=== PATIENT | male | born 1985 | race Caucasian/White ===

== ENCOUNTER 2016-04-01 18:26 | Emergency (ER) | payer OTHER ==
[~2016-04-01] VITALS: Ht 167.6 cm; Wt 94.8 kg
[~2016-04-01 18:26] MED LIST: ALBINS/ INH; ALBUAER19 INH; BND25 PO; CALCTAB65 PO; CHOL100010 PO; CLR10 PO; EPP3/2 IM; MULTTAB58 PO; OMEP-199 PO; PXL20 PO; WLL75 PO
[2016-04-01 18:52] VITALS: TEMP 37; Ht 167.6 cm; Wt 94.8 kg
[2016-04-01] MEDS ORDERED: PRT/20 PO (20:09)
[2016-04-01] MEDS ORDERED: CETI10TA84 PO (20:09)
[2016-04-01 20:35] LABS: BASO % 0.4 %; BASO ABS # 0.03 K/uL (0-0.2); COMPLETE YES; EOS % 5.1 %; HEMATOCRIT 45.1 % (42-52); IG% 0.1 %; LYMPH % 33.8 %; LYMPH ABS # 2.26 K/uL (1.2-3.4); MEAN CELL VOLUME 85.1 fL (80-100); MEAN CORPUSCULAR HGB CONC 35.3 g/dl (32-36); MEAN PLATELET VOLUME 9.8 fL (7.4-10.4); MONO % 5.7 %; NEUT % 54.9 %; PLATELET COUNT 237 K/uL (130-400); WHITE BLOOD COUNT 6.68 K/uL (4.8-10.8)
[2016-04-01 20:59] LABS: BUN/CREATININE RATIO 13.6 (10-20); CREATININE 1.1 mg/dl (0.60-1.40); POTASSIUM 3.5 mmol/L (3.5-5.1)
--- NOTE | 2016-04-01 21:09 | EMERGENCY ROOM VISIT NOTE ---
History First contact with patient: 19:30 Chief Complaint: RECTAL BLEEDING Stated Complaint: BLOOD CLOTS WHEN HAVING BOWEL MOVEMENT History of Present Illness The patient is a 31 year old male who presents to the Emergency Room via private vehicle with complaints of "blood clots would have a bowel movement". The patient states that he has had normal bowel movements until today around 2: 15 PM when at the end of his defecation/normal bowel movement he noticed that when he wiped there was blood on the toilet paper a little bit in the bowl. This was bright red blood. There was no melena. Patient states that after cleaning himself there was still a little bit of blood that he noticed in his underwear. He notes that the bowel movement was brown in nature and not black. He again denies any abdominal pain or pain with bowel movements. He notes he is only have one episode of this. He denies any constipation lately, history of anal fissure, hemorrhoids. His only abdominal surgery is cholecystectomy. He denies any symptoms at this time. Review of Systems A complete 10-point Review of Systems was discussed with the patient, with pertinent positives and negatives listed in the History of Present Illness. All remaining Review of Systems questions can be considered negative unless otherwise specified. Past Medical/Surgical History Medical Problems: (1) Asthma (2) GERD (gastroesophageal reflux disease) Family History Diabetes mellitus FH: gallbladder disease FH: heart disease Hypertension Social History Smoking Status: Never Smoker Alcohol Use: occasionally Marital Status: Housing Status: lives with family Occupation Status: employed Current/Historical Medications Scheduled Bupropion HCl (Bupropion HCl), 75 MG PO BID Cetirizine (Zyrtec), 10 MG PO DAILY Pantoprazole (Protonix), 20 MG PO DAILY Paroxetine (Paroxetine HCl), 20 MG PO DAILY Scheduled PRN Albuterol Inhaler (Ventolin Inhaler), 2 PUFFS INH QID PRN for Shortness of Breath Albuterol Sulf (Proventil 0.083% 2.5MG/3ML), 2.5 MG INH QID PRN for SOB/Wheezing Epinephrine (Epipen), 0.3 MG IM UD PRN for ALLERGIC REACTION Allergies Coded Allergies: NUTS (Unverified Allergy, Severe, SEVERELY ALLERGIC, 04/01/16) Nut Tree (Unverified Allergy, Severe, SEVERELY ALLERGIC, 04/01/16) Cephalexin (Verified Allergy, Unknown, VOMITING AND RESP, 04/01/16) Grass (Verified Allergy, Unknown, UNKNOWN, 04/01/16) Molds and Smuts (Verified Allergy, Unknown, `, 04/01/16) Physical Exam Vital Signs Date Time Temp Pulse Resp B/P Pulse Ox O2 Delivery O2 Flow Rate FiO2 04/01/16 21:15 61 18 124/89 98 Room Air 04/01/16 20:06 65 18 130/84 100 Room Air 04/01/16 18:52 37.0 69 18 134/85 100 Room Air Physical Exam VITAL SIGNS - Vital signs and nursing notes were reviewed. Patient is afebrile , normotensive, non-tachycardic and saturating well on room air at 100%. GENERAL -31-year-old male appearing his stated age who is in no acute distress. Communicates well with provider and answers questions appropriately. SKIN - Without rashes. No petechial rashes. No gingival bleeding. HEAD - NC/AT. EYES - PERRL with EOMI bilaterally. Sclera anicteric. Palpebral conjunctiva pink and moist with no injection noted. No subconjunctival hemorrhage. EARS - No deformities of external structures noted on gross examination bilaterally. No blood in the ear canals. NOSE - Midline and without cyanosis. No epistaxis or purulent drainage noted. Septum midline without deviation or septal hematoma noted. MOUTH/OROPHARYNX - Without perioral cyanosis. Buccal mucosa pink and moist and without leukoplakia. Tongue midline with equal elevation of palate bilaterally. No tonsillar hypertrophy, erythema, or exudates noted. Good dentition noted. No gingival bleeding. NECK - Neck with FROM. LUNGS - Chest wall symmetric without accessory muscle use, intercostals retractions, or central cyanosis. Normal vesicular breath sounds CTA B/L. No wheezes, rales, or rhonchi appreciated. CARDIAC - RRR with S1/S2. No murmur, rubs, or gallops appreciated. ABDOMEN - Abdominal contour without pulsations or visible masses. BS normoactive all four quadrants. No tenderness, palpable masses, hepatosplenomegaly, or ascites noted. No abdominal abnormalities noted. EXTREMITIES - No clubbing or peripheral cyanosis. No pretibial edema present. + 5/5 strength noted in UE/LE bilaterally. NEUROLOGIC - Sensory intact to light touch throughout. RECTAL: After obtaining consent, good sphincter tone, no external hemorrhoids or fissures noted. No active extravasation of blood. There is dried blood noted in the perineum region. No evidence of abscess or infection. Internal examination digitally reveals no prostate enlargement, tenderness, internal hemorrhoids. There was no gross blood noted. Medical Decision & Procedures Laboratory Results 04/01/16 20:27 Red Blood Count 5.30, Mean Corpuscular Volume 85.1, Mean Corpuscular Hemoglobin 30.0, Mean Corpuscular Hemoglobin Concent 35.3, Mean Platelet Volume 9.8, Neutrophils (%) (Auto) 54.9, Lymphocytes (%) (Auto) 33.8, Monocytes (%) (Auto) 5.7, Eosinophils (%) (Auto) 5.1, Basophils (%) (Auto) 0.4, Neutrophils # (Auto) 3.66, Lymphocytes # (Auto) 2.26, Monocytes # (Auto) 0.38, Eosinophils # (Auto) 0.34, Basophils # (Auto) 0.03 04/01/16 20:27 Test 04/01/16 20:27 White Blood Count 6.68 K/uL (4.8-10.8) Red Blood Count 5.30 M/uL (4.7-6.1) Hemoglobin 15.9 g/dL (14.0-18.0) Hematocrit 45.1 % (42-52) Mean Corpuscular Volume 85.1 fL (80-100) Mean Corpuscular Hemoglobin 30.0 pg (25-34) Mean Corpuscular Hemoglobin Concent 35.3 g/dl (32-36) Platelet Count 237 K/uL (130-400) Mean Platelet Volume 9.8 fL (7.4-10.4) Neutrophils (%) (Auto) 54.9 % Lymphocytes (%) (Auto) 33.8 % Monocytes (%) (Auto) 5.7 % Eosinophils (%) (Auto) 5.1 % Basophils (%) (Auto) 0.4 % Neutrophils # (Auto) 3.66 K/uL (1.4-6.5) Lymphocytes # (Auto) 2.26 K/uL (1.2-3.4) Monocytes # (Auto) 0.38 K/uL (0.11-0.59) Eosinophils # (Auto) 0.34 K/uL (0-0.5) Basophils # (Auto) 0.03 K/uL (0-0.2) RDW Standard Deviation 40.3 fL (36.4-46.3) RDW Coefficient of Variation 13.0 % (11.5-14.5) Immature Granulocyte % (Auto) 0.1 % Immature Granulocyte # (Auto) 0.01 K/uL (0.00-0.02) Anion Gap 13.0 mmol/L (3-11) Est Creatinine Clear Calc Drug Dose 106.8 ml/min Estimated GFR () 104.6 Estimated GFR (Non- 90.2 BUN/Creatinine Ratio 13.6 (10-20) Calcium Level 9.0 mg/dl (8.5-10.1) Medical Decision Patient was seen and evaluated as above. After obtaining a thorough history and physical examination the blood workup was initiated. Patient has had one episode of BRBPR medially following defecation. He has had normal bowel movements consistently with only one episode of blood. He denies any history of hemorrhoid or fissure. He denies any history of abdominal conditions. 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 It is possible the patient has an internal hemorrhoid. Patient has had no abdominal pain or rectal pain. His only symptom was one episode of rectal bleeding. I do believe it is reasonable at this time to assess basic labs, CBC reveals no leukocytosis or anemia. CMP reveals slightly high anion gap but stable electrolytes. I do not suspect any hemorrhage at this time. I do not suspect any infectious process. Case was discussed with my attending, and it was decided the patient could follow-up in the outpatient setting by calling the phone number provided for a spa consultant. Patient seemed happy with plan of care. He was educated upon worrisome symptoms which to return, had questions answered prior to discharge and was discharged home in good condition. In the evaluation and treatment of this patient the following differential diagnoses were entertained: Anal fissure, external hemorrhoid, internal hemorrhoid, diverticulitis, Crohn's, ulcerative colitis, mesenteric ischemia, among others. In the absence of abdominal pain, or rectal pain I suspect the patient does not have any emergent causes therefore believe it is appropriate to follow up in the outpatient setting with gastroenterology. He certainly was educated to return with any worsening, persistent or new/concerning symptoms. Impression Primary Impression: Rectal bleeding Departure Information Dispostion Home / Self-Care Condition GOOD Referrals Mikayla Brody DO (PCP) Tonya Burgess M.D. Patient Instructions My [facility] Additional Instructions You were seen in the emergency Department for rectal bleeding. Your blood work did not reveal any low blood levels or signs of infection. Your anion gap was found to be slightly high here today at 13, but the other levels that comprise this value were normal. Please call the number for the GI specialists listed above. (Dr. Burgess). Please call first thing tomorrow morning and states that you were seen in the emergency Department. Please return to the emergency department with any additional bleeding, dizziness, nausea, vomiting, abdominal pain or any new/concerning symptoms.
[2016-04-01 21:15] VITALS: BP 124/89; PULSE 61; O2SAT 98
[2016-05-14] MEDS ORDERED: PENI500T2 PO (14:19)
[2016-05-14] MEDS ORDERED: LAMO100T PO (14:19)
[2016-05-14] MEDS ORDERED: PYRI100T4 PO (14:19)
== END 2016-04-01 21:16 | disposition home or self-care (01) ==
LOC: C.EDB 18:30 → C.EDA 21:16
DX: K62.5 Hemorrhage of anus and rectum (principal); J45.909 Unspecified asthma, uncomplicated; K21.9 Gastro-esophageal reflux disease without esophagitis; Z79.899 Other long term (current) drug therapy

== ENCOUNTER → 2016-04-24 | Outpatient (CLI) | payer OTHER ==
[~2016-04-24] MED LIST changes: +AMOX875T PO; +AZITTAB PO; -BND25 PO; -CALCTAB65 PO; +CETI10TA84 PO; -CHOL100010 PO; -CLR10 PO; +CYAN100T PO; +FEXO1TAB49 PO; +LAMO100T PO; +MULT-506 PO; -MULTTAB58 PO; -OMEP-199 PO; +PENI500T2 PO; +PRT/20 PO; +PYRI100T4 PO; +SULI200T4 PO; +VNTHFA/IN INH
--- NOTE | 2016-04-24 16:26 | DIAGNOSTIC IMAGING REPORT ---
THORACIC SPINE 3 VIEWS CLINICAL HISTORY: Thoracic back pain. FINDINGS: AP, lateral, and swimmer's views of the thoracic spine are correlated with lateral chest x-ray dated 02/09/2015. The skeletal structures are well mineralized. There is no radiographic evidence of fracture or malalignment. Vertebral body height and alignment are maintained. The transverse processes and pedicles are grossly intact on the frontal view. Intervertebral disc spaces are maintained. Cholecystectomy clips are noted in the right upper quadrant. The imaged lung parenchyma appears clear. IMPRESSION: No acute bony abnormality is identified in the thoracic spine. Electronically signed by: Doc Morales M.D. 04/24/2016 4:25 PM Dictated Date/Time: 04/24/2016 4:24 PM
== END | disposition home or self-care (01) ==
LOC: C.RAD 15:52
PROVIDERS: ATTEND Family Medicine
DX: M54.9 Dorsalgia, unspecified (principal)

== ENCOUNTER 2016-05-06 09:49 | Emergency (ER) | payer OTHER ==
[~2016-05-06] VITALS: Ht 167.6 cm; Wt 99.0 kg
[~2016-05-06 09:49] MED LIST changes: -AMOX875T PO; -AZITTAB PO; -CYAN100T PO; -FEXO1TAB49 PO; -LAMO100T PO; -MULT-506 PO; -PENI500T2 PO; -PYRI100T4 PO; -SULI200T4 PO; -VNTHFA/IN INH
[2016-05-06 10:03] VITALS: TEMP 36.7; Ht 167.6 cm; Wt 99.0 kg
[2016-05-06] MEDS ORDERED: MULT-506 PO (10:31)
[2016-05-06] MEDS ORDERED: VNTHFA/IN INH (10:31)
[2016-05-06] MEDS ORDERED: CYAN100T PO (10:31)
[2016-05-06] MEDS ORDERED: PENICILLIN V POTASSIUM 250 MG TAB PO ONE (11:15)
--- NOTE | 2016-05-06 11:15 | EMERGENCY ROOM VISIT NOTE ---
History Report prepared by Rita: Jones Young Under the Supervision of: Dr. Cceilio Umana M.D. First contact with patient: 11:07 Chief Complaint: RESPIRATORY PROBLEMS Stated Complaint: EAR PAIN, CHEST DISCOMFORT History of Present Illness The patient is a 31 year old male who presents to the Emergency Room with complaints of persistent sore throat that started yesterday. The patient also complains of pain in his right ear and feeling like his right eye was swelling. He denies shortness of breath, but does note some discomfort with deep breaths. He notes one close contact illness with his who was recently evaluated in the hospital for strep throat and pneumonia. Source of History: patient Onset: yesterday Position: throat Timing: other (persistent) Associated Symptoms: No SOB Note: Other associated symptoms: right ear pain, right eye swelling Review of Systems All systems have been listed, reviewed, and are negative other than those previously mentioned. Please see Additional Medical History Sheet. Past Medical & Surgical Medical Problems: (1) Asthma (2) GERD (gastroesophageal reflux disease) Family History Diabetes mellitus FH: gallbladder disease FH: heart disease Hypertension Social History Smoking Status: Never Smoker Alcohol Use: occasionally Marital Status: Housing Status: lives with family Occupation Status: employed Current/Historical Medications Scheduled Bupropion HCl (Bupropion HCl), 75 MG PO BID Cetirizine (Zyrtec), 10 MG PO DAILY Cyanocobalamin (Vitamin B-12), 100 MCG PO DAILY Multivitamin (Multivitamin), 1 TAB PO DAILY Pantoprazole (Protonix), 20 MG PO DAILY Paroxetine (Paroxetine HCl), 20 MG PO DAILY Penicillin V Potassium (Veetids), 500 MG PO TID Scheduled PRN Albuterol Hfa (Ventolin Hfa), 2 PUFFS INH QID PRN for Shortness of Breath Albuterol Sulf (Proventil 0.083% 2.5MG/3ML), 2.5 MG INH QID PRN for SOB/Wheezing Epinephrine (Epipen), 0.3 MG IM UD PRN for ALLERGIC REACTION Allergies Coded Allergies: NUTS (Unverified Allergy, Severe, SEVERELY ALLERGIC, 05/06/16) Nut Tree (Unverified Allergy, Severe, SEVERELY ALLERGIC, 05/06/16) Cephalexin (Verified Allergy, Unknown, VOMITING AND RESP, 05/06/16) Grass (Verified Allergy, Unknown, UNKNOWN, 3/27/17) Molds and Smuts (Verified Allergy, Unknown, `, 05/06/16) Physical Exam Vital Signs Date Time Temp Pulse Resp B/P Pulse Ox O2 Delivery O2 Flow Rate FiO2 05/06/16 12:48 80 20 127/70 100 05/06/16 10:03 36.7 76 20 133/87 99 Room Air Physical Exam GENERAL: Patient awake, alert, oriented x 3. Patient follows commands. Patient does not appear toxic. Patient is adequately hydrated and well- nourished. SKIN: No erythema, pallor, cyanosis or rash HEENT: Normal head, pupils equal, reactive to light and accommodation. Ears normal. Throat tonsils have been extracted. Some erythema, no pus noted. Neck : Without cervical adenopathy, no neck vein distention. LUNGS: Clear to auscultation. No wheezes, no rales, no rhonchi. HEART: No murmurs. No gallops. No rubs EXTREMITIES: No signs of or infection. NEUROLOGIC: Cranial nerves II-XII within normal limits. No gross motor sensory function deficits. Medical Decision & Procedures Medications Administered Medications (Trade) Dose Ordered Sig/Adry Route Start Time Stop Time Status Last Admin Dose Admin Penicillin V Potassium (Veetids Tab) 500 mg ONE ONCE PO 05/06/16 11:15 05/06/16 11:18 DC 05/06/16 11:35 500 MG ED Course 1108: Past medical records reviewed. The patient was evaluated in room B9. A complete history and physical examination was performed. 1115: Ordered Veetids Tab 500 mg PO. 1131: Upon reevaluation, the patient was resting comfortably. I discussed today' s findings with him. He verbalized agreement of the treatment plan. The patient was discharged home. Medical Decision Differential diagnoses include acute pharyngitis: viral versus bacterial, bronchitis, pneumonia, or asthma. Patient is here with a sore throat. His was recently diagnosed with culture proven strep. Exam does not reveal any pus or significant lymphadenopathy. His tonsils were removed in the past. In light of the patient 's history I believe he should be treated without further testing. The patient was started on penicillin here and given a prescription for the same. He is to take Tylenol for aches pains or fever and gargle with hot salt water. Impression Primary Impression: Acute streptococcal pharyngitis Scribe Attestation The scribe's documentation has been prepared under my direction and personally reviewed by me in its entirety. I confirm that the note above accurately reflects all work, treatment, procedures, and medical decision making performed by me. Departure Information Dispostion Home / Self-Care Prescriptions Penicillin V Potassium (VEETIDS) 500 Mg Tab 500 MG PO TID, #29 TAB Prov: Cecilio Umana M.D. 05/06/16 Referrals Mikayla Brody DO (PCP) Forms HOME CARE DOCUMENTATION FORM, IMPORTANT VISIT INFORMATION, WORK / SCHOOL INSTRUCTIONS Patient Instructions My [facility] Additional Instructions Pen VK 3 times per day until prescription has been completed.
[2016-05-06] MEDS ORDERED: PENI500T2 PO (11:18)
[2016-05-06 12:48] VITALS: BP 127/70; PULSE 80; O2SAT 100
[2016-05-14] MEDS ORDERED: LAMO100T PO (14:19)
[2016-05-14] MEDS ORDERED: PYRI100T4 PO (14:19)
[2016-05-14] MEDS ORDERED: PENI500T2 PO (14:19)
== END 2016-05-06 13:03 | disposition home or self-care (01) ==
LOC: C.EDB 09:52
DX: J02.0 Streptococcal pharyngitis (principal); J45.909 Unspecified asthma, uncomplicated; K21.9 Gastro-esophageal reflux disease without esophagitis; Z79.899 Other long term (current) drug therapy; Z91.018 Allergy to other foods; Z88.8 Allergy status to other drugs, medicaments and biological substances; Z83.3 Family history of diabetes mellitus; Z83.79 Family history of other diseases of the digestive system; Z82.49 Family history of ischemic heart disease and other diseases of the circulatory system

== ENCOUNTER → 2016-06-27 | Day surgery (SDC) | payer OTHER ==
[2016-05-14 14:20] VITALS: Ht 170.2 cm; Wt 93.2 kg
[~2016-06-27] VITALS: Ht 170.2 cm; Wt 93.2 kg
[~2016-06-27] MED LIST changes: -ALBUAER19 INH; +AMOX875T PO; +AZITTAB PO; +CYAN100T PO; +FEXO1TAB49 PO; +LAMO100T PO; +LIDOCAINE HCL 2% 2 ML VIAL (20MG/ML) ONE; +MIDAZOLAM HCL 1 MG/ML 2ML VIAL ONE; +ONDANSETRON INJ 2 MG/ML 2 ML VIAL ONE; +PENI500T2 PO; +PROPOFOL IV EMULSION 10 MG/ML 20 ML VIAL IV ONE; +PYRI100T4 PO; +SODIUM CHLORIDE 0.9% 500ML 500 ML IV ONE; +SULI200T4 PO; +VNTHFA/IN INH
--- NOTE | 2016-06-27 15:52 | Endo History and Physical ---
History & Physical Date of Service: June 27, 2016. Chief Complaint: Rectal Bleeding Referring Physician: Mikayla Brody History of Present Illness 31 yo CM who presents for colonoscopy secondary to rectal bleeding. Past Surgical History Hx Cardiac Surgery: No Hx Internal Defibrillator: No Hx Pacemaker: No Hx Abdominal Surgery: Yes (VITA 2011) Hx of Implantable Prosthesis: No Hx Post-Op Nausea and Vomiting: Yes (PONV R/T HYPOGLYCEMIC SENSITIVITY) Hx Cancer Surgery: No Hx Thoracic Surgery: No Hx Orthopedic: No Hx Urinary Tract Surgery: No Family History None Social History Smoking Status: Never Smoker Hx Substance Use: No Hx Alcohol Use: No Allergies Coded Allergies: NUTS (Unverified Allergy, Severe, ANAPHYLAXIS, 05/14/16) Nut Tree (Unverified Allergy, Severe, ANAPHYLAXIS, 05/14/16) Cephalexin (Verified Allergy, Unknown, VOMITING AND RESP, 05/14/16) Grass (Verified Allergy, Unknown, SINSUS DRAINAGE AND SNEEZING, 05/14/16) Molds and Smuts (Verified Allergy, Unknown, SINUS DRAINAGE AND SNEEZING, ) Current Medications Reported Home Medications Medications Dose Route/Sig Max Daily Dose Days Date Category Dose Instructions Vitamin B6 (Pyridoxine HCl) 100 Mg Tab 100 Mg PO QAM 05/14/16 Reported Veetids (Penicillin V Potassium) 500 Mg Tab 500 Mg PO TID 05/14/16 Reported WILL COMPLETE 05-18-16 Lamictal (Lamotrigine) 100 Mg Tab 0.5 Tab PO BID 05/14/16 Reported Vitamin B-12 (Cyanocobalamin) 100 Mcg Tab 100 Mcg PO QAM 05/06/16 Reported Ventolin Hfa (Albuterol) 200 Puffs/75878 Mcg Aers 2 Puffs INH QID PRN 05/06/16 Reported Protonix (Pantoprazole Sodium) 20 Mg Tab 20 Mg PO QAM 04/01/16 Reported Zyrtec (Cetirizine HCl) 10 Mg Tab 10 Mg PO QAM 04/01/16 Reported Bupropion HCl 75 Mg Tab 75 Mg PO BID 07/01/15 Reported Epipen (Epinephrine) 0.3 Mg/0.3 Ml Inj 0.3 Mg IM UD PRN 10/30/14 Reported Paroxetine HCl (Paroxetine) 20 Mg Tab 20 Mg PO QPM 10/30/14 Reported Proventil 0.083% 2.5MG/3ML (Albuterol Sulf) 2.5 Mg/3 Ml Nebu 2.5 Mg INH QID PRN 09/22/11 Reported Vital Signs Weight (Kilograms): 93.18 Height (Feet): 5 Height (Inches): 7 Date Time Temp Pulse Resp B/P Pulse Ox O2 Delivery O2 Flow Rate FiO2 06/27/16 14:32 36.7 72 16 134/76 97 Room Air Physical Exam General Appearance: WD/WN, no apparent distress Respiratory/Chest: Auscultation: breath sounds normal Cardiovascular: Heart Auscultation: RRR Abdomen: Bowel Sounds: normal Inspection & Palpation: soft, non-distended, no tenderness, guarding & rebound Assessment and Plan Assessment: 31 yo CM who presents for colonoscopy secondary to rectal bleeding. Plan: Proceed with colonoscopy.
--- NOTE | 2016-06-27 16:21 | Discharge Instructions ---
Endoscopy Patient Instructions Date / Procedure(s) Performed June 27, 2016. Colonoscopy Allergy Information Coded Allergies: NUTS (Unverified Allergy, Severe, ANAPHYLAXIS, 05/14/16) Nut Tree (Unverified Allergy, Severe, ANAPHYLAXIS, 05/14/16) Cephalexin (Verified Allergy, Unknown, VOMITING AND RESP, 05/14/16) Grass (Verified Allergy, Unknown, SINSUS DRAINAGE AND SNEEZING, 05/14/16) Molds and Smuts (Verified Allergy, Unknown, SINUS DRAINAGE AND SNEEZING, ) Discharge Date / Findings June 27, 2016. Internal hemorrhoids Medication Instructions OK to resume all medications today as prescribed Reported Home Medications Medications Dose Route/Sig Max Daily Dose Days Date Category Dose Instructions Vitamin B6 (Pyridoxine HCl) 100 Mg Tab 100 Mg PO QAM 05/14/16 Reported Veetids (Penicillin V Potassium) 500 Mg Tab 500 Mg PO TID 05/14/16 Reported WILL COMPLETE 05-18-16 Lamictal (Lamotrigine) 100 Mg Tab 0.5 Tab PO BID 05/14/16 Reported Vitamin B-12 (Cyanocobalamin) 100 Mcg Tab 100 Mcg PO QAM 05/06/16 Reported Ventolin Hfa (Albuterol) 200 Puffs/67849 Mcg Aers 2 Puffs INH QID PRN 05/06/16 Reported Protonix (Pantoprazole Sodium) 20 Mg Tab 20 Mg PO QAM 04/01/16 Reported Zyrtec (Cetirizine HCl) 10 Mg Tab 10 Mg PO QAM 04/01/16 Reported Bupropion HCl 75 Mg Tab 75 Mg PO BID 07/01/15 Reported Epipen (Epinephrine) 0.3 Mg/0.3 Ml Inj 0.3 Mg IM UD PRN 10/30/14 Reported Paroxetine HCl (Paroxetine) 20 Mg Tab 20 Mg PO QPM 10/30/14 Reported Proventil 0.083% 2.5MG/3ML (Albuterol Sulf) 2.5 Mg/3 Ml Nebu 2.5 Mg INH QID PRN 09/22/11 Reported Provider Instructions Activity Restrictions - No exercising or heavy lifting for 24 hours. - Do not drink alcohol the day of the procedure. - Do not drive a car or operate machinery until the day after the procedure. - Do not make any important decisions or sign important papers in 24 hours after the procedure. Following Day: - Return to full activity which may include returning to work/school. Diet Start your diet with liquids and light foods (jello, soup, juice, toast). Then eat your usual diet if not nauseated. Treatment For Common After Affects For mild abdominal pain, bloating, or excessive gas: - Rest - Eat lightly - Lie on right side Follow-Up Information Follow-up with Mikayla Brody as scheduled Anesthesia Information What You Should Know You have had a procedure that required some medicine to reduce anxiety and discomfort. This treatment is called moderate sedation. After receiving the treatment, you may be sleepy, but you will be able to breathe on your own. The effects of the treatment may last for several hours. Follow these instructions along with Activity/Diet recommendations noted above: * Do NOT do anything where dizziness or clumsiness would be dangerous. * Rest quietly at home today, then you can be up and about tomorrow. * Have a responsible person stay with you the rest of today. * You may have had an I.V. today. If so, you may take the dressing off later today. Recommendations Call your doctor if: * Trouble breathing * Continuous vomiting for more than 24 hours * Temperature above 101 degrees * Severe abdominal pain or bloating * Pain not relieved by pain medicine ordered * There is increased drainage or redness from any incision * A large amount of rectal bleeding greater than 2-3 tablespoons. (If you had a polyp/s removed or have hemorrhoids, a small amount of blood - from the rectum is to be expected.) * You have any unanswered questions or concerns. IN THE EVENT OF A SERIOUS EMERGENCY, GO TO THE NEAREST EMERGENCY ROOM Your discharge instructions were prepared by provider Abram Luna. Patient Instructions Signature Page Beto Martinez Patient (or Guardian) Signature/Date: I have read and understand the instructions given to me by my caregivers. Caregiver/RN/Doctor Signature/Date: The above-named patient and/or guardian has received patient instructions on this date. + Original Patient Signature Page (only) stays with chart. Please make copy for patient.
--- NOTE | 2016-06-27 16:46 | GI REPORT ---
Procedure Date: 06/27/2016 3:41 PM Procedure: Colonoscopy Indications: Rectal bleeding Medicines: Monitored Anesthesia Care Complications: No immediate complications. Estimated Blood Loss: Estimated blood loss: none. Procedure: Pre-Anesthesia Assessment: - Prior to the procedure, a History and Physical was performed, and patient medications and allergies were reviewed. The patient's tolerance of previous anesthesia was also reviewed. The risks and benefits of the procedure and the sedation options and risks were discussed with the patient. All questions were answered, and informed consent was obtained. Prior Anticoagulants: The patient has taken no previous anticoagulant or antiplatelet agents. ASA Grade Assessment: II - A patient with mild systemic disease. After reviewing the risks and benefits, the patient was deemed in satisfactory condition to undergo the procedure. After I obtained informed consent, the scope was passed under direct vision. Throughout the procedure, the patient's blood pressure, pulse, and oxygen saturations were monitored continuously. The scope was introduced through the anus and advanced to the terminal ileum. The colonoscopy was performed without difficulty. The patient tolerated the procedure well. The quality of the bowel preparation was good. The terminal ileum, ileocecal valve, appendiceal orifice, and rectum were photographed. Findings: Non-bleeding internal hemorrhoids were found during retroflexion. The hemorrhoids were small. Impression: - Non-bleeding internal hemorrhoids. - No specimens collected. Recommendation: - Resume previous diet. - Continue present medications. - Repeat colonoscopy at age 52 for surveillance. - Return to primary care physician as previously scheduled. Abram Luna DO 06/27/2016 4:45:38 PM This report has been signed electronically. Note Initiated On: 06/27/2016 3:41 PM I attest to the content of the Intraoperative Record and orders documented therein, exceptions below
--- NOTE | 2016-06-27 16:50 | Anesthesiology Progress Note ---
Anesthesia Post Op Note Date & Time June 27, 2016 at 16:49 Vital Signs Pain Intensity: 0 Vital Signs Past 12 Hours Date Time Temp Pulse Resp B/P Pulse Ox O2 Delivery O2 Flow Rate FiO2 06/27/16 16:37 79 18 118/77 98 Room Air 06/27/16 16:22 79 18 125/79 97 Room Air 06/27/16 14:32 36.7 72 16 134/76 97 Room Air Notes Mental Status: alert / awake / arousable, participated in evaluation Pt Amnestic to Procedure: Yes Nausea / Vomiting: adequately controlled Pain: adequately controlled Airway Patency, RR, SpO2: stable & adequate BP & HR: stable & adequate Hydration State: stable & adequate Anesthetic Complications: no major complications apparent Pt doing well. Glucose 120.
[2016-06-27 17:02] VITALS: BP 138/88; PULSE 73; TEMP 36.7; O2SAT 99
== END | disposition home or self-care (01) ==
LOC: C.GI 13:58
PROVIDERS: ATTEND Internal Medicine
DX: K64.8 Other hemorrhoids (principal); K62.5 Hemorrhage of anus and rectum

== ENCOUNTER 2016-09-15 19:05 | Emergency (ER) | payer OTHER ==
[~2016-09-15] VITALS: Ht 167.6 cm; Wt 97.2 kg
[~2016-09-15 19:05] MED LIST changes: -AMOX875T PO; -AZITTAB PO; -FEXO1TAB49 PO; -LIDOCAINE HCL 2% 2 ML VIAL (20MG/ML) ONE; -MIDAZOLAM HCL 1 MG/ML 2ML VIAL ONE; -ONDANSETRON INJ 2 MG/ML 2 ML VIAL ONE; -PROPOFOL IV EMULSION 10 MG/ML 20 ML VIAL IV ONE; -SODIUM CHLORIDE 0.9% 500ML 500 ML IV ONE; -SULI200T4 PO
[2016-09-15 19:09] VITALS: BP 137/88; PULSE 64; TEMP 36.9; O2SAT 98; Ht 167.6 cm; Wt 97.2 kg
[2016-09-15] MEDS ORDERED: AMOXICIL/CLAVU 875MG HOME PACK PO ONE (19:30)
[2016-09-15] MEDS ORDERED: AMOX875T PO (19:33)
[2016-09-15] MEDS ORDERED: SULI200T4 PO (19:40)
[2016-09-15] MEDS ORDERED: AZITTAB PO (19:40)
[2016-09-15] MEDS ORDERED: FEXO1TAB49 PO (19:40)
--- NOTE | 2016-09-15 20:34 | EMERGENCY ROOM VISIT NOTE ---
History First contact with patient: 19:17 Chief Complaint: EAR PAIN Stated Complaint: EAR PAIN, RT History of Present Illness The patient is a 31 year old male who presents to the Emergency Room with complaints of right ear pain and slight dizziness. The patient reports that he developed ear pain 1 week ago. When he lost balance at work last Friday, he was seen at the [facility] office in [place], and provided a prescription for a Z-Shawn. The patient reports no improvement of his symptoms over the past 48 hours. He denies any fevers or chills or current dizziness. He has also had no sinus congestion, runny nose, sore throat, postnasal drip or cough. He denies any prior history of vertigo. He has had a history of ear infections as a child, but never required any ear tubes. He rates his discomfort a 5 out of 10. Review of Systems 10 system review was performed and was negative except for pertinent positives and negatives as indicated in history of present illness Past Medical/Surgical History Medical Problems: (1) Asthma (2) GERD (gastroesophageal reflux disease) Family History Diabetes mellitus FH: gallbladder disease FH: heart disease Hypertension Social History Smoking Status: Never Smoker Alcohol Use: occasionally Marital Status: Housing Status: lives with family Occupation Status: employed Current/Historical Medications Scheduled Amoxicillin & Pot Clavulanate (Augmentin 875-125 mg), 1 TAB PO BID Azithromycin (Zithromax Z-Shawn), 1 PKT PO UD Bupropion HCl (Bupropion HCl), 75 MG PO BID Cyanocobalamin (Vitamin B-12), 100 MCG PO QAM Fexofenadine Hcl (Aleja Allergy), 1 TAB PO DAILY Lamotrigine (Lamictal), 0.5 TAB PO BID Pantoprazole (Protonix), 20 MG PO QAM Paroxetine (Paroxetine HCl), 20 MG PO QPM Pyridoxine (Vitamin B6), 100 MG PO QAM Sulindac (Clinoril), 200 MG PO BID Scheduled PRN Albuterol Hfa (Ventolin Hfa), 2 PUFFS INH QID PRN for Shortness of Breath Albuterol Sulf (Proventil 0.083% 2.5MG/3ML), 2.5 MG INH QID PRN for SOB/Wheezing Epinephrine (Epipen), 0.3 MG IM UD PRN for ALLERGIC REACTION Physical Exam Vital Signs Date Time Temp Pulse Resp B/P (MAP) Pulse Ox O2 Delivery O2 Flow Rate FiO2 09/15/16 19:09 36.9 64 16 137/88 98 Room Air Pain Rating (0-10): 3.0 Physical Exam CONSTITUTIONAL: Healthy and well nourished. Alert and oriented X 3 with positive affect. Patient does not appear in any acute distress. HEENT: Normocephalic, atraumatic. Pupils equal, round and reactive. No rhinorrhea noted. Examination of the left ear shows mild TM bulging without air -fluid level, serous or purulent effusion. Bony landmarks and light reflex are present. Examination of the right ear shows TM erythema without perforation or drainage. Bony landmarks are barely visible, and light reflex is absent. OROPHARYNX: No significant posterior pharyngeal erythema, postnasal drip or tonsillar hypertrophy. NECK: Full active range of motion without discomfort. MUSCULOSKELETAL: Full range of motion of all joints without discomfort. INTEGUMENTARY: No rash or other significant dermatologic conditions noted. NEUROLOGIC: Facial sensations are intact. Medical Decision & Procedures Medications Administered Medications (Trade) Dose Ordered Sig/Adry Route Start Time Stop Time Status Last Admin Dose Admin Amoxicillin/ Clavulanate Potassium (Augmentin 875MG Home Pack) 1 homepack UD ONCE PO 09/15/16 19:30 09/15/16 19:31 DC 09/15/16 19:39 1 HOMEPACK ED Course Patient history and physical exam were performed. Nurse's notes were reviewed. Vital signs were reviewed and normal. Clinical exam is consistent with otitis media. I did elect to switch the patient to Augmentin antibiotics. He was also encouraged to take an antihistamine for additional relief. Ibuprofen and Tylenol in alternating fashion if needed for additional pain relief. I did suggest that the patient follow up with his PCP for recheck in 3-5 days. The reports that she has to come to [facility] for a doctor's appointment next Friday , and wanted contact information for ENT. She requested someone in the [facility]. Contact information was provided for Dr. Knight. The patient was instructed to return to the emergency department for any developing fever, severe headache, concerning neurologic symptoms, worsening dizziness or other concerning symptoms. The patient voiced understanding of all discharge instructions, and the patient denied any significant discomfort at the conclusion of my exam. Medical Decision Blood Pressure Screening Patient's blood pressure: Normal blood pressure Impression Primary Impression: Acute right otitis media Departure Information Dispostion Home / Self-Care Condition GOOD Prescriptions Amoxicillin & Pot Clavulanate (Augmentin 875-125 mg) 1 Tab Tab 1 TAB PO BID for 10 Days, #20 TAB Prov: Guero Brizuela PA 09/15/16 Referrals James Knight MD Forms HOME CARE DOCUMENTATION FORM, IMPORTANT VISIT INFORMATION Patient Instructions My [facility] Additional Instructions Stop your Zithromax, and take Augmentin as prescribed. Suggest also taking an antihistamine like Claritin or Aleja. Ibuprofen or Tylenol as needed for pain. Suggest follow-up with ENT in 5-7 days (Dr. Knight).
== END 2016-09-15 19:41 | disposition home or self-care (01) ==
LOC: C.EDB 19:06 → C.EDD 19:41
DX: H66.91 Otitis media, unspecified, right ear (principal); J45.909 Unspecified asthma, uncomplicated; K21.9 Gastro-esophageal reflux disease without esophagitis; Z83.3 Family history of diabetes mellitus; Z83.79 Family history of other diseases of the digestive system; Z82.49 Family history of ischemic heart disease and other diseases of the circulatory system; Z79.899 Other long term (current) drug therapy

== ENCOUNTER → 2016-09-30 | Outpatient (CLI) | payer OTHER ==
[~2016-09-30] MED LIST changes: +AZITTAB PO; -CETI10TA84 PO; +FEXO1TAB49 PO; -PENI500T2 PO; +SULI200T4 PO
[2016-09-30 17:59] LABS: BASO % 0.3 %; BASO ABS # 0.03 K/uL (0-0.2); COMPLETE YES; EOS % 0.6 %; HEMATOCRIT 42.1 % (42-52); IG% 0.5 %; LYMPH % 23.5 %; LYMPH ABS # 2.18 K/uL (1.2-3.4); MEAN CELL VOLUME 86.8 fL (80-100); MEAN CORPUSCULAR HEMOGLOBIN 29.9 pg (25-34); MEAN CORPUSCULAR HGB CONC 34.4 g/dl (32-36); MEAN PLATELET VOLUME 10.5 fL (7.4-10.4); MONO % 6.7 %; NEUT % 68.4 %; PLATELET COUNT 233 K/uL (130-400); RED BLOOD COUNT 4.85 M/uL (4.7-6.1); WHITE BLOOD COUNT 9.26 K/uL (4.8-10.8)
[2016-09-30 18:02] LABS: ALT/SGPT 36 U/L (12-78); AST/SGOT 25 U/L (15-37); BLOOD UREA NITROGEN 16 mg/dl (7-18); BUN/CREATININE RATIO 18.1 (10-20); CALCIUM 8.6 mg/dl (8.5-10.1); CARBON DIOXIDE 29 mmol/L (21-32); CHLORIDE 108 mmol/L (98-107); CREATININE 0.88 mg/dl (0.60-1.40); GLUCOSE 96 mg/dl (70-99); MAGNESIUM 2.1 mg/dl (1.8-2.4); POTASSIUM 3.6 mmol/L (3.5-5.1); SODIUM 142 mmol/L (136-145)
[2016-09-30 18:13] LABS: ALB/GLOB RATIO 1.2 (0.9-2); ALKALINE PHOSPHATASE 90 U/L (45-117); FERRITIN 113.2 ng/ml (8.0-388.0)
== END | disposition home or self-care (01) ==
LOC: C.LABPBG 15:40
PROVIDERS: ATTEND Nurse Practitioner Family
DX: R53.83 Other fatigue (principal); G47.19 Other hypersomnia

== ENCOUNTER → 2016-10-08 | Outpatient (CLI) | payer OTHER ==
--- NOTE | 2016-10-08 18:00 | DIAGNOSTIC IMAGING REPORT ---
CHEST 2 VIEWS ROUTINE CLINICAL HISTORY: R07.89 Chest [id number] COMPARISON STUDY: 02/09/2015 FINDINGS: The cardiac and mediastinal contours remain stable. There is mild hilar prominence which remain stable. This likely represents prominent central vessels.[ There is no failure. There are no pleural effusions. There is no focal pulmonary consolidation. IMPRESSION: No active disease in the chest. Electronically signed by: Samson Hicks M.D. 10/08/2016 5:59 PM Dictated Date/Time: 10/08/2016 5:58 PM
--- NOTE | 2016-10-08 18:01 | DIAGNOSTIC IMAGING REPORT ---
RIGHT FOREARM 2 VIEWS ROUTINE CLINICAL HISTORY: Pain and swelling of upper extremity. COMPARISON: None FINDINGS: No acute fracture of the right radius or ulna is identified. Alignment of the right elbow is anatomic. There is no evidence for a right elbow joint effusion. IMPRESSION: No abnormality of the right radius or ulna. Electronically signed by: Chong Ward M.D. 10/08/2016 6:00 PM Dictated Date/Time: 10/08/2016 5:58 PM
== END | disposition home or self-care (01) ==
LOC: C.RAD 17:35
PROVIDERS: ATTEND Physician Assistant
DX: R07.89 Other chest pain (principal); M79.601 Pain in right arm; M79.89 Other specified soft tissue disorders

== ENCOUNTER → 2017-01-04 | Outpatient (CLI) | payer OTHER ==
--- NOTE | 2017-01-04 16:26 | DIAGNOSTIC IMAGING REPORT ---
CHEST 2 VIEWS ROUTINE CLINICAL HISTORY: Acute upper respiratory infection. COMPARISON STUDY: Chest radiograph October 08, 2016. FINDINGS: Incidental note is made of cholecystectomy clips. Lung volumes are normal. No pneumothorax or pleural effusion is present. Cardiomediastinal silhouette is normal. Pulmonary vascularity is normal. IMPRESSION: No acute cardiopulmonary findings. Electronically signed by: Chong Ward M.D. 01/04/2017 4:24 PM Dictated Date/Time: 01/04/2017 4:24 PM
--- NOTE | 2017-01-04 16:29 | DIAGNOSTIC IMAGING REPORT ---
L-SPINE MIN 4 VIEWS ROUTINE CLINICAL HISTORY: Back pain. COMPARISON: None FINDINGS: Incidental note is made of cholecystectomy clips. Alignment of the lumbar spine is anatomic. Vertebral body heights are maintained. There is no fracture. Disc spaces are preserved. Sacroiliac joints are intact. IMPRESSION: No significant abnormality of the lumbar spine. Electronically signed by: Chong Ward M.D. 01/04/2017 4:27 PM Dictated Date/Time: 01/04/2017 4:25 PM
== END | disposition home or self-care (01) ==
LOC: C.RAD 14:12
PROVIDERS: ATTEND Physician Assistant
DX: J06.9 Acute upper respiratory infection, unspecified (principal); M54.9 Dorsalgia, unspecified

== ENCOUNTER → 2017-03-11 | Outpatient (CLI) | payer OTHER ==
[~2017-03-11] VITALS: Ht 167.6 cm; Wt 99.7 kg
[2017-03-11 15:54] VITALS: BP 113/78; PULSE 60; Ht 167.6 cm; Wt 99.7 kg
== END | disposition home or self-care (01) ==
LOC: C.NEUR 15:14
PROVIDERS: ATTEND Internal Medicine Pulmonary Disease
DX: R06.83 Snoring (principal); G47.61 Periodic limb movement disorder; G47.19 Other hypersomnia; J30.9 Allergic rhinitis, unspecified; J45.909 Unspecified asthma, uncomplicated; T78.05XA Anaphylactic reaction due to tree nuts and seeds, initial encounter; T78.01XA Anaphylactic reaction due to peanuts, initial encounter; X58.XXXA Exposure to other specified factors, initial encounter

== ENCOUNTER → 2017-03-28 | Outpatient (CLI) | payer OTHER ==
--- NOTE | 2017-03-29 05:28 | PAP/PSG TECHNICIAN REPORT ---
[facility] Gun Numberer Polysomnogram Report Study name: None Report date: 03/29/2017 Study date: 03/28/2017 Referring Physician: DR. NUNEZ Name: RAFI PATTERSON Interpreting Physician: Jarad Nunez M.D. Date of : 1985 Gun Numberer: Kyle Parish RPSLILI. Sex: Male Age: 32 StudyType: PSG Weight: 219 lbs 17 inches Height: 32 years, Height 5' 6" Neck Circum: BMI: 35.34 Medications: ALBUTEROL SULFATE 2.5 MG, ANTWAN ALLERGY 180 MG, EPIPEN, PANTOPRAZOLE SODIUM 40 MG, PAROXETINE HCL 20 MG, VENTOLIN HFA 108 90 BASE Patient History PATIENT HAS HISTORY OF FATIGUE AND DAYTIME SLEEPINESS. HE GENERALLY FEELS TIRED ALL DAY LONG AND NEVER FEELS REFRESHED UPON AWAKENING. HE ALSO HAS HISTORY OF SNORING. HE IS HERE TODAY FOR AN EVALUATION FOR TASHI. ESS = 16 RM 5 Parameters Monitored NPSG: E1-M2, E2-M1, Fp1-M2, Fp2-M1, F3-M2, F4-M2, F4-M1, C3-M2, C4-M2, C4-M1, O1-M2, O2-M2, O2-M1, T3-M2, T4-M1, P3-M2, P4-M1, CHIN1, CHIN2, HR, EKG, Legs, PFLOW, SNOR, FLOW, CFLOW, Tidal Volume, THOR, ABDO, SpO2, PLTH, CPRESS, ETCO2 Wave, ETCO2, pH Sleep Architecture Sleep Stages Time at Lights Off 9:50:46 PM STAGES Time (min.) TST (%) Time at Lights On 5:05:46 AM Wake 50.5 -- Total Recording Time (TRT) 435.50 min. N1 20.5 5 Total Sleep Period (TSP) 395.0 min. N2 283.0 74 Total Sleep Time (TST) 384.5min. N3 24.5 6 Awake Time 51.0 min. REM 56.5 15 Wake after Sleep Onset 11.5 min. Sleep Efficiency (SE) 88 % Sleep Onset Latency (FRAN) 39.0 min. Number of Stage 1 Shifts None Awakenings 18 Stage Changes 78 Number of REM periods 4 REM 56.5 15 REM Latency 164.5 min. NREM 328.0 85 Body Position Analysis Supine Right Left Side Prone Vertical Total Sleep Time (min.) 91.6 5.3 152.0 157.32 165.8 0.0 Total Sleep Time (%) 16% 1% 40% 41 43% N/A% Total Sleep Time REM (min.) 13.0 0.0 0.0 None 43.5 0.0 Total Sleep Time NREM (min.) 50.4 5.3 152.0 None 120.3 0.0 Intermittent Wake (min.) 28.3 16.2 4.0 None 2.0 0.0 Total Sleep Period (%) 17% None None None None None Arousals Myoclonus (PLM) * Events Count Index Events Count Index Spontaneous 13 2 Events Awake (PLMW) 62 73.7 Respiratory 43 6.7 Events Asleep w/ Arousal (PLMA) 18 2.8 PLM 18 3 Events Asleep w/o Arousal (PLMS) 242 37.8 Snoring 71 11 Total Asleep 260 40.6 Total 128 20 Total 322 44 Respiratory Analysis * CA OA MA CH H RERA Total Count 0 0 0 0 163 0 163 Index 0.0 0.0 0.0 0 25.4 0 25.4 Mean Duration 0.0 0.0 0.0 0.00 19.6 0.0 19.6 Longest Duration 0.0 0.0 0.0 0.00 0.0 0.0 47.9 Respiratory Event Summary Total Supine ~Supine Right Left Prone REM NREM Apneas Count 0 0 0 0 0 0 0 0 Index 0.0 0 0 0.0 0.0 0 0 0 Hypopneas (4% Desat) Count 163 62 101 0 67 34 28 135 Index 25.4 58.7 19 0.0 26.5 12.5 29.7 24.7 Apneas & All Hypopneas Count 163 62 101 0 67 34 28 135 Index 25.4 59 19 0 26 12 29.7 24.7 Respiratory Events (Mds Coordinator+All Hyp+RERA) Count 163 62 101 0 67 34 28 135 Index 25.4 59 19 0.0 26.5 12.5 29.7 24.7 Respiratory Related Arousal Count 43 62 26 0 21 5 2 41 Index 6.7 16 5 0 8 2 2 8 Snoring Analysis Supine Right Left Prone REM NREM Total Snore duration 173.6 min Snores count 951 26 2,579 3,056 1,065 5,547 6,612 Snore mean duration 1.6 Sec Snores index 901 292 1,018 1,119 1,131.0 1,014.7 1,031.8 TST with snoring (%) 45.1% Desaturation Event Summary: Minimum %SpO2 Event Count Mean/Min/Max Duration(sec.) Desaturation Index % Time In Bed > 90 178 24.3 / 9.8 / 60.0 28.6 86.2 86 - 90 9 31.8 / 11.5 / 48.5 9.2 13.6 81 - 85 0 N/A 0.0 0.2 76 - 80 0 N/A 0.0 0.0 71 - 75 0 N/A 0.0 0.0 66 - 70 0 N/A 0.0 0.0 61 - 65 0 N/A 0.0 0.0 56 - 60 0 N/A 0.0 0.0 51 - 55 0 N/A 0.0 0.0 < 50 0 N/A 0.0 0.0 Total REM NREM Awake <50% 0.0 min. 0.0 min. 0.0 min. 0.0 min. 51 - 60% 0.0 min. 0.0 min. 0.0 min. 0.0 min. 61 - 70% 0.0 min. 0.0 min. 0.0 min. 0.0 min. 71 - 80% 0.0 min. 0.0 min. 0.0 min. 0.0 min. 81 - 90% 59.7 min. 17.7 min. 40.6 min. 1.5 min. 91 - 100% 373.3 min. 38.8 min. 285.8 min. 48.8 min. Average 92 91 92 92 Minimum SpO2 83 85 83 87 Desaturation Event Index 24.8 30.8 27.4 1.2 # Desat. Events below 89% 51 10 41 0 Time(%) with Saturation below 89% 3.4 1.2 2.2 0.0 Time(min.) with Saturation below 89% 14.6 5.1 9.3 0.2 Time (mins) REM (mins) NREM (mins) % of TST SpO2 Below 90% 140 22 N118 7.6 SpO2 Below 88% 22 0 0 2 Heart Rate Analysis Min (bpm) Max (bpm) Average (bpm) Awake 55 105 67 NREM 51 127 64 REM 54 93 65 Overall 51 127 64 Supplemental O2 Values Minimum O2 level: None Value Start Time End Time Gun Numberer Comments Mr. Patterson slept in the left, supine, and prone positions. No cardiac arrhythmia noted. Leg movements noted. No bruxism noted. Snoring was noted and scored as a 4 on a scale of 1 through 5. (0=no snoring, 5=snoring loud enough to be heard through a closed door or down the rojas way) Mr. Patterson awoke to use the restroom 0 times during the night. Mr. Patterson stated I did not sleep as well as I do when I am in my own bed. The final report will be interpreted and signed by a sleep physician. The completed physician report will then be placed in the patient medical record. Therapy (cm H2O) 0 TIB (min.) 435.0 TST (min.) 384.5 Sleep Onset (min.) 39.0 REM Onset From Sleep (min.) 164.5 Sleep Efficiency % 88 Wakefulness (%) 12 Wakefulness (min.) 51.0 NREM 1 (%) 5 NREM 1 (min.) 20.5 NREM 2 (%) 74 NREM 2 (min.) 283.0 NREM 3 (%) 6 NREM 3 (min.) 24.5 REM (%) 15 REM (min.) 56.5 # Arousals 128 Arousal Index 20 # Snore 6,612 Snore Index 1,031.8 AHI 25.4 AHI Supine 59 AHI Non-Supine 19 NREM AHI 24.7 REM AHI 29.7 RDI 25.4 # Obstructive Apnea 0 # Central Apnea 0 # Mixed Apnea 0 # Hypopneas 163 RERAs 0 Total Respiratory Events 164 Time Below SpO2 89% (min.) 14.4 Mean NREM SpO2 (%) 92 Mean REM SpO2 (%) 91 Mean Sleep SpO2 (%) 92 Min NREM SpO2 (%) 83 Min REM SpO2 (%) 85 Position Supine (min.) 91.6 Position Non-supine (min.) 321.1 LM Index Sleep 40.6 LM Index NREM 43.4 LM Index REM 24.4 Mean Heart Rate (bpm) 64 Min Heart Rate (bpm) 51
--- NOTE | 2017-04-01 10:50 | POLYSOMNOGRAPH REPORT ---
CLINICAL DATA: This is a 32-year-old male with BMI of 35.34 referred with history of daytime fatigue and sleepiness, feels tired all long and does not feel awake and refresh when he awakens. He also has a history of snoring. His Echo sleepiness score is elevated at 16/30. He is a patient of Dr. Brody and Zach Alvarado. SLEEP ARCHITECTURE: Total sleep period was 395 minutes. Total sleep time was 384.5 minutes divided between 328 minutes of non-REM sleep and 56.5 minutes of REM sleep. Sleep onset latency was delayed at 39 minutes. REM latency was 164.5 minutes. Sleep efficiency was 88%. Wake after sleep onset was 11.5 minutes. Sleep consisted of stage N1 5%, stage N2 74%, stage N3 6%, and REM 15%. AROUSAL DATA: One hundred and twenty eight arousals were recorded for an index of 20 per hour. Forty three were due to respiratory events. Seventy one were due to snoring events. PERIODIC LIMB MOVEMENT DATA: Two hundred and sixty limb movements during sleep were noted for an index of 40.6 per hour with arousal index of 2.8 per hour. RESPIRATORY DATA: Moderate sleep apnea was documented. The AHI was 25.4. There were 163 hypopneic episodes with the mean duration of 19.6 seconds. OXIMETRY DATA: Nocturnal hypoxemia was seen. Oxygen xochitl was 83%. Mean saturation was 93%. Time below 88% was 22 minutes. ECHOCARDIOGRAM: Heart rates ranged from 51-127 beats per minute. No arrhythmias were noted. SENIOR POLICY ANALYST'S COMMENTS: The patient slept in the left, supine, and prone positions. Snoring was severe, rated 4 on a scale of 1 through 5. IMPRESSION: Moderate sleep apnea/hypopnea with an apnea/hypopnea index of 25.4 with nocturnal hypoxemia. RECOMMENDATIONS: The patient may benefit from use of an oral appliance, repeat sleep study with CPAP or use of an auto CPAP. Clinical correlation is needed. ASH
== END | disposition home or self-care (01) ==
LOC: C.NEUR 21:00
PROVIDERS: ATTEND Internal Medicine Pulmonary Disease
DX: T78.05XA Anaphylactic reaction due to tree nuts and seeds, initial encounter (principal); T78.01XA Anaphylactic reaction due to peanuts, initial encounter; J45.909 Unspecified asthma, uncomplicated; G47.19 Other hypersomnia; G47.61 Periodic limb movement disorder; R06.83 Snoring